=== PATIENT | female | born 1975 | race Two or more races ===

== ENCOUNTER 2019-05-04 16:07 | Emergency (ER) | payer MEDICAID ==
[~2019-05-04] VITALS: Ht 165.1 cm; Wt 64.4 kg
--- NOTE | 2019-05-04 16:25 | NUR ---
ASSUME PT CARE. PT IS C/O LOWER BACK AND R HIP PAIN S/P MECHANICAL GLF AT NOON. DENIES HITTING HEAD. STABLE VITALS. AWAITING MD JONES.
--- NOTE | 2019-05-04 16:48 | NUR ---
DR VO AT BEDSIDE FOR EVAL.
[2019-05-04] MEDS ORDERED: ONDANSETRON HCL/PF 4 MG/2 ML VIAL ONE (16:56)
[2019-05-04] MEDS ORDERED: MORPHINE SULFATE INJ 4 MG/ML DISP.SYRIN ONE (16:56)
[2019-05-04] MEDS: IBUPROFEN 600 MG TABLET PO ONE ×2 (17:00→17:40)
[2019-05-04] MEDS ORDERED: IV NS 0.9% 500 ML BAG IV ONE (17:00)
[2019-05-04] MEDS ORDERED: MORPHINE SULFATE INJ 2 MG/ML DISP.SYRIN IV ONE (17:00)
[2019-05-04] MEDS: ACETAMINOPHEN ES 500 MG TABLET PO ONE ×2 (17:00→17:40)
[2019-05-04] MEDS ORDERED: ONDANSETRON HCL/PF 4 MG/2 ML VIAL IVP ONE (17:00)
--- NOTE | 2019-05-04 17:13 | NUR ---
RADIOLOGY AT BEDSIDE FOR PELVIC XRAY.
[2019-05-04] MEDS ORDERED: ACETAMINOPHEN ES 500 MG TABLET ONE (18:04)
[2019-05-04] MEDS ORDERED: IBUPROFEN 600 MG TABLET PO ONE (18:04)
--- NOTE | 2019-05-04 19:12 | NUR ---
REPORT TO [employer]WOR[employer] INSPECTOR RN FOR HIRAM.
[2019-05-04 19:21] VITALS: BP 128/79
--- NOTE | 2019-05-04 19:21 | NUR ---
Patient discharged to home in stable condition. Written and verbal after care instructions given. Patient verbalizes understanding of instruction. Received prescription medications. Instructed not to drive.
--- NOTE | 2019-05-04 19:22 | NUR ---
IV removed. Catheter intact and site benign. Pressure and 4x4 applied to site. No bleeding noted.
== END 2019-05-04 19:23 | disposition home or self-care (01) ==
LOC: ER 16:09
DX: S39.012A Strain of muscle, fascia and tendon of lower back, initial encounter (principal); M25.551 Pain in right hip; I10 Essential (primary) hypertension; W01.0XXA Fall on same level from slipping, tripping and stumbling without subsequent striking against object, initial encounter; Y93.89 Activity, other specified; Y92.89 Other specified places as the place of occurrence of the external cause; Y99.8 Other external cause status
CPT/HCPCS: 72110; 73502; 96374; 96375; 99283; J2270; J2405; J7040